=== PATIENT | female | born 1975 | race Hispanic/Latino ===

== ENCOUNTER 2018-03-25 10:48 | Emergency (ER) | payer MEDICARE, OTHER ==
[2018-03-25 11:52] LABS: #Basophils 0.1 thou/uL (0.0-0.2); #Eosinphils 0.4 thou/uL (0.0-0.7); #Lymphocytes 3.1 thou/uL (1.20-3.40); #Monocytes 0.7 thou/uL (0.11-0.59); #Neutrophils 5.9 thou/uL (1.40-6.50); %Basophils 0.9 % (0.0-1.0); %Eosinophils 4.2 % (0.0-10.0); %Neutrophils 57.9 % (42.0-75.0); Hemoglobin 12.5 g/dL (12.0-16.0); Mean Corpuscular HGB CONC 30.7 g/dL (32.0-36.0); Mean Corpuscular Hemoglobin 25.5 pg (27.0-31.0); Platelet Count 329 thou/uL (130-400); RBC Distribution Width 19.9 % (11.5-14.5); Red Blood Cell (RBC) Count 4.91 mill/uL (4.20-5.40); White Blood Cell (WBC) Count 10.2 thou/uL (4.8-10.8)
[2018-03-25 12:01] LABS: ALT (SGPT) 115 U/L (8-55); AST (SGOT) 260 U/L (5-34); Alkaline Phosphatase 1775 U/L (40-150); Anion Gap 15 mmol/L (10-20); BUN (Urea Nitrogen) 8 mg/dL (7.0-18.7); Bilirubin, Total 3.1 mg/dL (0.2-1.2); Calc. Creatinine Clearance 0 mL/min (70-130); Calcium 9.3 mg/dL (7.8-10.44); Carbon Dioxide 28 mmol/L (22-29); Chloride 98 mmol/L (98-107); Estimated GFR-MDRD 66; Globulin 4.3 g/dL (2.4-3.5); Glucose 94 mg/dL (70-105); Lipase 12 U/L (8-78); Protein, Total 8.3 g/dL (6.0-8.3); Sodium 138 mmol/L (136-145)
[2018-03-25 12:06] LABS: Bilirubin Negative (Negative); Blood, Urine Negative (Negative); Clarity CLEAR (Clear); Glucose, Urine (Dipstick) Negative (Negative); Leukocyte Negative (Negative); Nitrite Negative (Negative); Protein, Urine (Dipstick) Negative (Neg-Trace); Specific Gravity, Urine 1.005 (1.002-1.036); pH, Urine 7.5 (5.0-9.0)
[2018-03-25 12:09] LABS: Pregnancy Test - Urine (BHCG) Negative (Negative); Pregu Control Background? CLEAR/WHITE (CLR/WHITE); Pregu Control Bar Appear? YES (CONTROL BAR); Specific Gravity 1.005 (1.002-1.036)
--- NOTE | 2018-03-25 13:19 | ULT ---
ULTRASOUND GALLBLADDER: HISTORY: A 42-year-old with a history of abdominal pain. 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 FINDINGS: Multiple longitudinal and transverse images of the right abdomen were obtained using a multihertz cur vilinear transducer. Real-time, color flow, and spectral waveform Doppler analysis demonstrates norm al flow seen in the right main portal vein. The right left hepatic lobes are unremarkable. No evide nce of intrahepatic biliary dilatation is seen. The common bile duct is of normal size measuring 2.6 mm. The gallbladder was not transplanted with the transplanted liver. Therefore, it is not visuali zed. No evidence of ascites seen. The transplanted right kidney is visualized and appears to be unr emarkable. Pole to pole measurement measuring 10.8 cm. Good blood flow is seen in the right kidney. The right resistive index measures approximately 0.6 to 0.7. No evidence of right-sided hydronephrosis seen. The pancreas is not well visualized. IMPRESSION: Unremarkable transplanted liver and right kidney. POS: [facility]
== END 2018-03-25 16:36 | disposition short-term general hospital (02) ==
LOC: ERS 10:48
DX: K72.90 Hepatic failure, unspecified without coma (principal); R74.0 Nonspecific elevation of levels of transaminase and lactic acid dehydrogenase [LDH]; D64.9 Anemia, unspecified; E03.9 Hypothyroidism, unspecified; F32.9 Major depressive disorder, single episode, unspecified; M06.9 Rheumatoid arthritis, unspecified; E55.9 Vitamin D deficiency, unspecified; Z94.4 Liver transplant status
CPT/HCPCS: 76705; 80053; 81003; 81025; 82140; 83605; 83690; 85025; 94760

== ENCOUNTER 2019-12-12 07:20 | Outpatient (CLI) | payer MEDICARE ==
--- NOTE | 2019-12-12 08:45 | MRI ---
MRI Lumbar Spine Noncontrast: HISTORY: Lumbar spondylosis without myelopathy. Patient complains of lower back pain and locking of right hip. Symptoms of been present for 2 months. COMPARISON: None FINDINGS: There is incomplete visualization of a 2 cm increased T2-weighted signal intensity cystic structure i n the left adnexa probably related to left ovarian cyst but is not adequately evaluated on this exam. Remainder of the retroperitoneal structures demonstrate a normal nonenhanced MRI appearance. Conus medullaris is normal in morphology and terminates at the T12-L1 level. Normal signal intensity is demonstrated in the bone marrow. L1-2: Mild broad-based disc bulge without central canal or neural foraminal narrowing. L2-3: There is no disc bulge or disc herniation. Central spinal canal and neural foramina are patent. L3-4: There is no disc bulge or disc herniation. Central spinal canal and neural foramina are patent. Facet hypertrophic changes are present. L4-5: Mild disc osteophyte complex is present. Facet hypertrophic changes are noted. No significant c entral canal or neural foraminal narrowing is present. L5-S1: Mild loss of intervertebral disc height. Mild disc osteophyte complex is present with right pa racentral disc protrusion. Facet hypertrophic changes are present. A small right paracentral disc protrusion does contact the traversing right S1 nerve root with slight posterior displacement of the nerve root without deformity. There is mild encroachment on the right neural foramen. Left neural foramen is patent. IMPRESSION: 1. Mild degenerative changes lumbar spine. A small right paracentral disc protrusion at the L5-S1 lev el does appear to contact the traversing right S1 nerve root. 2. Incomplete visualization of a left adnexal cystic lesion probably attributable to a left ovarian c yst.
--- NOTE | 2019-12-12 09:32 | RAD ---
RIGHT HIP 2 VIEWS: Date: 12/12/2019 HISTORY: Pain. COMPARISON: None. FINDINGS: No fracture. No malalignment. Small acetabular osteophyte formation. Obturator ring is intact. Low grade degeneration of right SI joint. IMPRESSION: Relatively normal examination of right hip. POS: [facility]
--- NOTE | 2019-12-12 09:34 | RAD ---
LEFT HIP 2 VIEWS: Date: 12/12/2019 HISTORY: Pain. COMPARISON: None. FINDINGS: Small to moderate left acetabular osteophyte formation. No acute fracture or malalignment. Obturator ring is intact. IMPRESSION: Mild degenerative change left hip. POS: [facility]
== END 2019-12-12 07:21 | disposition home or self-care (01) ==
LOC: BICMRI 07:20
PROVIDERS: ATTEND Registered Nurse
DX: M47.816 Spondylosis without myelopathy or radiculopathy, lumbar region (principal); M16.12 Unilateral primary osteoarthritis, left hip; M51.27 Other intervertebral disc displacement, lumbosacral region; N83.8 Other noninflammatory disorders of ovary, fallopian tube and broad ligament
CPT/HCPCS: 72148

== ENCOUNTER 2021-10-14 11:26 | Outpatient (CLI) | payer MEDICARE | END 2021-10-14 11:27 | disposition home or self-care (01) | LOC: LABBT 11:26 | PROVIDERS: ATTEND Nurse Practitioner Adult Health | DX: Z20.822 Contact with and (suspected) exposure to COVID-19 (principal) | CPT/HCPCS: U0003; U0005 ==

== ENCOUNTER 2021-10-17 10:50 | Day surgery (SDC) | payer MEDICARE ==
[2021-10-15 15:30] VITALS: BMI 40.8
[2021-10-17] MEDS ORDERED: PROPOFOL 200 MG/20 ML VIAL ONE (13:30)
[2021-10-17] MEDS ORDERED: Lidocaine 1% PF 5 ML VIAL ONE (13:30)
== END 2021-10-17 15:32 | disposition home or self-care (01) ==
LOC: SDC/OP 10:50
PROVIDERS: ATTEND Nurse Practitioner Adult Health
DX: M51.36 Other intervertebral disc degeneration, lumbar region (principal); M48.061 Spinal stenosis, lumbar region without neurogenic claudication; M51.27 Other intervertebral disc displacement, lumbosacral region; I10 Essential (primary) hypertension; E03.9 Hypothyroidism, unspecified; M19.90 Unspecified osteoarthritis, unspecified site; E78.00 Pure hypercholesterolemia, unspecified; G47.00 Insomnia, unspecified; M79.7 Fibromyalgia; J45.909 Unspecified asthma, uncomplicated; G62.9 Polyneuropathy, unspecified; G47.30 Sleep apnea, unspecified; K21.9 Gastro-esophageal reflux disease without esophagitis; Z79.899 Other long term (current) drug therapy; Z88.5 Allergy status to narcotic agent; Z94.0 Kidney transplant status; Z94.4 Liver transplant status
CPT/HCPCS: 72148; J2704